=== PATIENT | male | born 1985 | race Caucasian/White ===

== ENCOUNTER 2016-08-26 06:35 | Day surgery (SDC) | payer OTHER ==
[~2016-08-26 06:35] MED LIST: RINGERS SOLUTION,LACTATED 1,000 ML IV PRN; ceFAZolin SODIUM 1 GM VIAL IV PRN
[2016-08-26] MEDS ORDERED: BUPIVACAINE HCL 50 ML VIAL IJ ONE ×2 (08:00)
--- NOTE | 2016-08-26 08:31 | OR ---
Operative Report - Dictated Report Narrative: Date: 08/26/2016 Physician: Akash Hernandez M.D. Floorleader: Wei Valdez PA-C Preoperative diagnosis: Right long and ring Trigger finger Postoperative diagnosis: Right long and ring Trigger finger Procedure: Right long and ring finger A1 orlando release Anesthesia: MAC Plus local Complications: None Estimated blood loss: Minimal Tourniquet time: 11 minutes at 325 mmHg Specimens: None Retained implants: None Drains: None Indications: Lalo Is a 30 year-old male who has been followed in my clinic with complaints of trigger finger. Physical exam as demonstrated triggering of the finger. Conservative measures have failed including but not limited to passage of time, activity modification, medications, and injections. The risks, benefits, and alternatives were discussed in clinic. The risks being bleeding, infection, nerve, tendon, blood vessel injury, persistent pain, wound competitions, need for additional procedures, and persistent symptoms. Consent was obtained in the clinic. Procedure: After marking the correct extremity in the preoperative holding area, a timeout was performed in the operating room. IV antibiotics consisting of 2 g of Ancef were administered prior to the procedure. A well-padded, nonsterile tourniquet was applied to the operative upper arm. The arm was exsanguinated and the tourniquet was inflated to 250 mmHg. 0.5% Marcaine without epinephrine was infused into the projected incision site at the palmar flexion crease over the metacarpal phalangeal joint in line with the affected digits. Using loupe magnification, a transverse incision was made in the appropriate palmar flexion crease in line with the long finger. Blunt dissection was carried down through the subcutaneous tissues using bipolar cautery for hemostasis. Care was taken to protect the digital nerves. Staying midline along the flexor tendon, the A1 orlando was identified. A warren was made in the proximal edge of the A1 orlando with a 15 blade scalpel and tenotomy scissors were utilized in order to completely transect the A1 orlando. Care was to stay midline and avoid transection of the A2 orlando. Soft tissues overlying the flexor tendon proximal to the A1 orlando were also released ensuring that there were no other compressive structures contributing to the triggering. The finger was placed through range of motion and demonstrated no additional catching. The tendons were visualized and mobilized out of the wound, and demonstrated some mild adhesions which were debrided with tenotomy scissors. The tendons were noted to be intact. We then turned our attention to the ring finger. A second transverse incision was made in the appropriate palmar flexion crease in line with the ring finger. Blunt dissection was carried down through the subcutaneous tissues using bipolar cautery for hemostasis. Care was taken to protect the digital nerves. Staying midline along the flexor tendon, the A1 orlando was identified. A warren was made in the proximal edge of the A1 orlando with a 15 blade scalpel and tenotomy scissors were utilized in order to completely transect the A1 orlando. Care was to stay midline and avoid transection of the A2 orlando. Soft tissues overlying the flexor tendon proximal to the A1 orlando were also released ensuring that there were no other compressive structures contributing to the triggering. The finger was placed through range of motion and demonstrated no additional catching. The tendons were visualized and mobilized out of the wound, and demonstrated some mild adhesions which were debrided with tenotomy scissors. The tendons were noted to be intact. Once it was felt that we had adequately decompressed the flexor tendons as they passed under the A1 orlando, the tourniquet was removed. Hemostasis was obtained with pressure and bipolar cautery. There was good return of color and capillary refill to the digit. Additional half percent Marcaine without epinephrine was infused into the skin edges. The wounds were thoroughly irrigated. The skin was closed with interrupted 4-0 nylon. Sterile dressings consisting of Xeroform, 4 x 4, and Lelo were applied. All sponge, needle, blade, and instrument counts were correct prior to closing the wounds. The patient was awoken and transferred to the post-anesthesia care unit in stable condition.
[2016-08-26] MEDS ORDERED: oxyCODONE HCL/ACETAMINOPHEN 1 TAB TABLET PO PRN (08:48)
[2016-08-26] MEDS ORDERED: HYDROmorphone HCL 2 MG/ML VIAL IV PRN (08:49)
[2016-08-26] MEDS ORDERED: RINGERS SOLUTION,LACTATED 1,000 ML IV PRN (08:49)
[2016-08-26 09:42] VITALS: BP 118/59
== END 2016-08-26 06:36 | disposition home or self-care (01) ==
LOC: AMB 06:35
PROVIDERS: ATTEND Orthopaedic Surgery
PROC: 0LN70ZZ Release Right Hand Tendon, Open Approach (ICD-10-PCS; 2016-08-26)
PROC: 0LN70ZZ Release Right Hand Tendon, Open Approach (ICD-10-PCS; principal; 2016-08-26 08:00)
DX: M65.331 Trigger finger, right middle finger (principal); M65.341 Trigger finger, right ring finger; Z68.26 Body mass index [BMI] 26.0-26.9, adult

== ENCOUNTER 2016-09-05 21:44 | Inpatient (IN) | payer OTHER ==
--- NOTE | 2016-09-05 21:46 | HP ---
Chief Complaint - Chief Complaint Date of Service: 09/05/16 Time of Service: 21:45 Chief Complaint: Right ring finger pain and swelling History of Present Illness: Lalo is a 30 yo M who is 10 days out from a right long and ring finger trigger finger release. He was initially seen in clinic 4 days postop where his wounds were inspected and he was found to have no drainage or or erythema and no swelling of either digit. He was doing well until Tuesday night when he noted some increasing pain and swelling of his ring finger. He monitor this over the weekend and by this afternoon it had become much worse. He called the call center and got a hold of me and I spoke to the patient directly over the phone. He sent me a picture of his finger and I was immediately concerned based on his history and the picture that was sent for purulent flexor tenosynovitis. I counseled him to come to the [facility] emergency Department as soon as possible and I would meet him there. He stated to me that he could only get a ride to [facility] which is closer to where he lived. I tried to convince the patient otherwise and explained to him the need for me to see his finger as I was his primary surgeon however despite this he presented to [facility] emergency Department. I continued to try and get a hold of the patient's and was able to get ahold of him again after he had been seen in the outside emergency department. He stated that they did not do any lab work and gave him some Vicodin and Keflex with instructions to follow back up with me on Tuesday. Once again I explained to him the seriousness of the situation and that I was concerned that he had a serious infection of his finger. I am poor him to find a way to get to the emergency department for [facility] so that I can evaluate him. He was able to find a ride and did indeed present to our emergency department with complaint of severe pain and swelling of his ring finger. He currently denies any fevers or chills. His any pain extending into the proximal aspect of the palm or wrist or up into the forearm. - Patient's Past Medical History Patient History - Medical: Migraines, Other Patient History - Cardiac/Respiratory: Asthma, Other Patient History - Cancer: No Hx of Cancer Patient History - Surgical Procedures: No surgical history Patient History - Other: None - Family History Father Family History - Medical: Diabetes Type 2 Family History - Cardiac/Respiratory: Hypertension Family History - Cancer: No pertinent family hx Mother Family History - Medical: Other Family History - Cardiac/Respiratory: No pertinent hx Family History - Cancer: No pertinent family hx - Social History Living Situations: other Abuse History: No History of abuse Psych History: No pertinent hx Alcohol Use: occasionally Drug Use: other Allergies/Adverse Reactions: Allergies Allergy/AdvReac Type Severity Reaction Status Date / Time venom-honey bee Allergy Severe Anaphylaxis Verified 08/26/16 06:53 [bee venom (honey bee)] Penicillins Allergy Unknown MOTHER Verified 08/26/16 06:53 TOLD HIM HE WAS ALLERGIC Home Medications: HOME MEDICATIONS Ibuprofen [Motrin] 800 mg PO QAM 08/19/16 [Last Taken Unknown] HYDROcodone/ACETAMINOPHEN [[place] 5-325] 1 - 2 tab PO Q6H PRN #30 tab 08/26/16 [ Last Taken Unknown] Exam - Exam Vital Signs: Vital Signs - Last Taken Temp 36.5 C 08/26/16 09:53 Pulse Resp BP 118/59 08/26/16 09:53 Pulse Ox Comprehensive Narrative: 09/05/16 21:55 Gen: A&O x4, NAD Resp: breathing nonlabored MSK: ring finger diffusely swollen and held in a flexed position, severe tenderness along flexor tendon sheath, exquisite pain with passive extension of finger, sensation intact but diminished, patient unable to actively flex or extend ring finger, cap refill brisk, incision without active drainage or erythema but with deep swelling and what appears to be underlying purulence Assessment/Plan - Narrative Narrative: 30 yo M 10 days s/p R long and ring finger trigger release now with purulent flexor tenosynovitis of the ring finger. - The patient's physical exam is classic for purulent flexor tenosynovitis as he is has all 4 positive Knavel's signs. I counseled him on the seriousness of this infection and explained to him that we need to emergently irrigate and debride his flexor tendon sheath. The risks and benefits of surgery were explained to him in detail including but not limited to neurovascular injury, persistent stiffness, wound complications, need for additional procedures, cardiorespiratory complications, and . After discussion of these risks and benefits the patient wished to proceed with surgery and it was declared emergent. - plan for I&D of the R ring finger - will obtain intraoperative cultures, hold abx until cultures obtained - admit to inpatient postoperatively for IV abx
[2016-09-05] MEDS ORDERED: RINGERS SOLUTION,LACTATED 1,000 ML IV PRN ×2 (21:49→23:15)
[2016-09-05 22:00] LABS: Hematocrit 37.1 % (42.0-52.0); Hemoglobin 13.3 gm/dL (13.5-18.0); Mean Cell Volume 93.9 fl (78-100); Mean Corpuscular Hemoglobin 33.7 pg (27-31); Mean Corpuscular Hgb Conc 35.8 g/dl (32-36); Mean Platelet Volume 8.8 fl (6.0-9.5); Neutrophil # 4.1 K/mm3 (1.3-6.0); Platelet Count 223 K/mm3 (150-450); Red Blood Count 3.95 M/mm3 (4.7-6.0); Red Cell Distribution Width 11.4 % (11.5-14.0)
[2016-09-05] MEDS ORDERED: RINGERS SOLUTION,LACTATED 1,000 ML IV ONE (22:05)
[2016-09-05] MEDS ORDERED: PROMETHAZINE HCL 5 MG in DEXTROSE 5 % IN WATER 50 ML IV PRN ×2 (23:15)
[2016-09-05] MEDS ORDERED: MAGNESIUM HYDROXIDE 30 ML UDC PO PRN (23:15)
[2016-09-05] MEDS ORDERED: ONDANSETRON HCL/PF 2 MG/ML VIAL IV PRN (23:15)
[2016-09-05] MEDS ORDERED: ACETAMINOPHEN 500 MG TABLET PO PRN (23:15)
[2016-09-05] MEDS ORDERED: MAG HYDROX/ALUMINUM HYD/SIMETH 30 ML UDC PO PRN (23:15)
[2016-09-05] MEDS ORDERED: oxyCODONE HCL/ACETAMINOPHEN 1 TAB TABLET PO PRN (23:15)
[2016-09-05] MEDS ORDERED: METOCLOPRAMIDE HCL 5 MG/ML VIAL IV PRN (23:28)
[2016-09-05] MEDS ORDERED: NALOXONE HCL 0.4 MG/ML VIAL IV PRN (23:28)
[2016-09-05] MEDS ORDERED: HYDROmorphone HCL 1 MG/ML DISP.SYRIN IV ONE ×2 (23:29→23:30)
--- NOTE | 2016-09-05 23:31 | OR ---
Operative Report - Dictated Report Narrative: Date: 09/05/2016 Physician: Akash Hernandez M.D. Co-surgeon: Tramaine Rivas M.D. Preoperative diagnosis: Purulent flexor tenosynovitis of right ring finger Postoperative diagnosis: Purulent flexor tenosynovitis of right ring finger Procedure: Irrigation and debridement of right ring finger Anesthesia: General Complications: None Estimated blood loss: Minimal Tourniquet time: 36 Minutes with forearm esmarch band Specimens: None Retained implants: None Drains: None Indications: Lalo Is a 30 year-old male who is 10 days status post right long and ring trigger finger release. He was initially doing well and was seen in follow-up 4 days postop for a work comp follow-up and at that time his wounds showed no signs of infection, however starting on Tuesday and through the weekend he developed progressive pain and swelling of the right ring finger. He was evaluated in the [facility] emergency department with a history and exam concerning for purulent flexor tenosynovitis. He was counseled on the serious nature of this infection and we explained the need for emergent irrigation and debridement of the finger. The risks and benefits were discussed including, but not limited to, bleeding, infection, nerve, tendon, blood vessel injury, persistent pain, wound competitions, need for additional procedures, stiffness, and persistent pain. Consent was obtained in the ED. Procedure: After marking the correct extremity in the preoperative holding area, a timeout was performed in the operating room. IV antibiotics were held prior to the procedure in order to obtain intraoperative cultures. A non-sterile tourniquet was placed around the operative upper arm. The operative extremity was then prepped and draped in usual sterile fashion. The arm was exsanguinated and the tourniquet was inflated to 250 mmHg. We turned our attention to the ring finger incision. The nylon sutures were removed and immediately we encountered some watery purulence. Intraoperative swab cultures were obtained. The incision and wound were irrigated and then more thoroughly explored. There was a large amount of rind-like tenosynovium covering the flexor tendons which was debrided with pickups and tenotomy scissors. Once all infectious and nonviable looking tissue was debrided from the palmar wound we turned our attention to the distal aspect of the finger. A mid axial incision was made along the ulnar border of the ring finger distal phalanx. Blunt dissection with tenotomy scissors was carried down to the level of the flexor tendon sheath which was opened with a sharp knife. We turned our attention back to the proximal wound and a 20-gauge angiocatheter was inserted into the flexor tendon sheath we then copiously irrigated the flexor tendon sheath with half a liter normal saline with good flow through the sheath and out the distal wound. After irrigation the FDS and FDP were mobilized out of the proximal wound, inspected, and debrided of any infectious looking material. At this point we felt we had adequately debrided the flexor tendons and adequately irrigated the flexor tendon sheath. Drain was placed in the proximal incision and the skin was loosely closed around the Lolly with interrupted 4-0 nylon suture. The distal incision was closed loosely with a single interrupted 4-0 nylon stitch. Sterile dressings consisting of Xeroform, 4 x 4, soft roll, and WALE were applied. All sponge, needle, blade, and instrument counts were correct prior to closing the wounds. The patient was awoken and transferred to the post- anesthesia care unit in stable condition.
[2016-09-06] MEDS ORDERED: PIPERACILLIN SODIUM/TAZOBACTAM 3.375 GM in DEXTROSE 5 % IN WATER 100 ML IV SCH ×2
[2016-09-06] MEDS ORDERED: VANCOMYCIN HCL 1 GM in DEXTROSE 5 % IN WATER 250 ML IV SCH ×2
[2016-09-06] MEDS: MORPHINE SULFATE 2 MG/ML DISP.SYRIN IV PRN ×5 (00:10→13:20)
[2016-09-06] MEDS: oxyCODONE HCL/ACETAMINOPHEN 1 TAB TABLET PO PRN ×5 (00:26→20:33)
[2016-09-06 06:02] LABS: Hematocrit 34.7 % (42.0-52.0); Hemoglobin 12.1 gm/dL (13.5-18.0); Mean Cell Volume 95.6 fl (78-100); Mean Corpuscular Hemoglobin 33.3 pg (27-31); Mean Corpuscular Hgb Conc 34.9 g/dl (32-36); Mean Platelet Volume 9.2 fl (6.0-9.5); Neutrophil # 4.7 K/mm3 (1.3-6.0); Neutrophil % 68.9 % (42-75.0); Platelet Count 192 K/mm3 (150-450); Red Blood Count 3.63 M/mm3 (4.7-6.0); Red Cell Distribution Width 11.4 % (11.5-14.0); White Blood Count 6.8 K/mm3 (4.0-10.5)
[2016-09-06 06:16] LABS: Anion Gap 13.8 mmol/L (6.8-13.8); BUN/Creatinine Ratio 10.3 (9.0-21.6); Calcium * 8.1 mg/dL (7.9-10.9); Carbon Dioxide 25.1 mmol/L (24-32.6); Estimated Creat Clear 115.2; Potassium 3.9 mmol/L (3.4-4.6)
[2016-09-06] MEDS: PIPERACILLIN SODIUM/TAZOBACTAM 3.375 GM in DEXTROSE 5 % IN WATER 100 ML IV SCH ×4 (09:55→18:10)
--- NOTE | 2016-09-06 10:35 | PN ---
Subjective - Date and Time Seen Date: 09/06/16 Subjective Narrative: Pain improved this am from last night. Denies fevers/chills. No other complaints. Objective - Vitals Vitals: Last Vital Signs Temp 36.9 C 09/06/16 09:00 Pulse 83 09/06/16 09:00 Resp 15 09/06/16 09:00 BP 146/81 09/06/16 09:00 Pulse Ox 100 09/06/16 09:00 - Abnormal Lab Findings Abnormal Lab Findings: Abnormal Lab Results 09/05/16 09/05/16 09/05/16 Range/Units 21:55 21:55 21:55 RBC 3.95 L (4.7-6.0) M/mm3 Hgb 13.3 L (13.5-18.0) gm/dL Hct 37.1 L (42.0-52.0) % MCH 33.7 H (27-31) pg RDW 11.4 L (11.5-14.0) % Lymphocytes % 15.8 L (20-51) % Monocytes % 12.3 H (0.0-9) % Lymphocytes # 0.9 L (1.5-3.5) k/mm3 Monocytes # (0.0-1.0) k/mm3 ESR 14 H (0-10) mm/hr Random Glucose (70-110) mg/dL C-Reactive Prot, Quant 1.8 H (0.0-0.9) mg/dL 09/06/16 09/06/16 Range/Units 05:47 05:47 RBC 3.63 L (4.7-6.0) M/mm3 Hgb 12.1 L (13.5-18.0) gm/dL Hct 34.7 L (42.0-52.0) % MCH 33.3 H (27-31) pg RDW 11.4 L (11.5-14.0) % Lymphocytes % 12.6 L (20-51) % Monocytes % 16.6 H (0.0-9) % Lymphocytes # 0.9 L (1.5-3.5) k/mm3 Monocytes # 1.1 H (0.0-1.0) k/mm3 ESR (0-10) mm/hr Random Glucose 115 H (70-110) mg/dL C-Reactive Prot, Quant (0.0-0.9) mg/dL - Exam Exam Narrative: Gen: A&Ox4, NAD Resp: breathing non-labored on RA MSK: dressings c/d/i, cap refill of thumb and index finger brisk, SILT Assessment/Plan Plan Narrative: 30 yo M w/ purulent flexor tenosynovitis of R ring finger following trigger finger release now s/p I&D, POD #1. - NWB through R hand - continue Vanc/Zosyn - awaiting intraoperative culture results - plan for dressing change tomorrow - oral pain meds - dispo: continue inpatient care
[2016-09-06] MEDS: VANCOMYCIN HCL 2 GM in DEXTROSE 5 % IN WATER 500 ML IV SCH ×2 (13:53)
[2016-09-06] MEDS: SENNOSIDES/DOCUSATE SODIUM 1 TAB TABLET PO SCH (20:28)
[2016-09-06] MEDS: diphenhydrAMINE HCL 50 MG/ML VIAL IV PRN (22:58)
[2016-09-07] MEDS: VANCOMYCIN HCL 2 GM in DEXTROSE 5 % IN WATER 500 ML IV SCH ×4 (01:06→14:27)
[2016-09-07] MEDS: oxyCODONE HCL/ACETAMINOPHEN 1 TAB TABLET PO PRN ×4 (01:13→18:44)
[2016-09-07] MEDS: PIPERACILLIN SODIUM/TAZOBACTAM 3.375 GM in DEXTROSE 5 % IN WATER 100 ML IV SCH ×6 (04:58→19:05)
[2016-09-07 05:39] LABS: Hematocrit 34.8 % (42.0-52.0); Hemoglobin 12.1 gm/dL (13.5-18.0); Mean Cell Volume 95.9 fl (78-100); Mean Corpuscular Hemoglobin 33.3 pg (27-31); Mean Corpuscular Hgb Conc 34.8 g/dl (32-36); Mean Platelet Volume 9.3 fl (6.0-9.5); Neutrophil # 2.3 K/mm3 (1.3-6.0); Neutrophil % 51.1 % (42-75.0); Platelet Count 187 K/mm3 (150-450); Red Blood Count 3.63 M/mm3 (4.7-6.0); Red Cell Distribution Width 11.3 % (11.5-14.0); White Blood Count 4.4 K/mm3 (4.0-10.5)
[2016-09-07 05:52] LABS: Anion Gap 10.4 mmol/L (6.8-13.8); Calcium * 8.6 mg/dL (7.9-10.9); Carbon Dioxide 29.8 mmol/L (24-32.6); Estimated Creat Clear 123.3; Potassium 4.2 mmol/L (3.4-4.6)
--- NOTE | 2016-09-07 09:30 | PN ---
Subjective - Date and Time Seen Date: 09/07/16 Subjective Narrative: Pain improving. Denies fevers/chills. No other complaints. Objective - Vitals Vitals: Last Vital Signs Temp 36.6 C 09/07/16 07:22 Pulse 63 09/07/16 07:22 Resp 18 09/07/16 07:22 BP 131/88 09/07/16 07:22 Pulse Ox 99 09/07/16 07:22 - Abnormal Lab Findings Abnormal Lab Findings: Abnormal Lab Results 09/07/16 09/07/16 Range/Units 05:15 05:15 RBC 3.63 L (4.7-6.0) M/mm3 Hgb 12.1 L (13.5-18.0) gm/dL Hct 34.8 L (42.0-52.0) % MCH 33.3 H (27-31) pg RDW 11.3 L (11.5-14.0) % Immature Gran % (Auto) 0.50 H (0.001-0.429) % Monocytes % 18.3 H (0.0-9) % Eosinophils % 3.4 H (0.0-3.0) % Lymphocytes # 1.2 L (1.5-3.5) k/mm3 BUN/Creatinine Ratio 7.0 L (9.0-21.6) - Exam Exam Narrative: MSK: RUE--> dressings taken down, finger minimally swollen - much improved compared to pre-op, minimal erythema, mild pain with gentle flexion/extension, serosanguinous drainage from proximal wound, anusha drain removed, cap refill brisk, SILT Assessment/Plan Plan Narrative: 30 yo M w/ R ring finger purulent tenosynovitis after trigger finger release s/ p I&D, POD #2. - cultures growing staph and gram neg bacilli, awaiting speciation and sensitivities, continue Vanc/Zosyn - finger is clinically improving - oral pain meds - reg diet - dispo: continue inpatient care
[2016-09-07] MEDS: diphenhydrAMINE HCL 50 MG/ML VIAL IV PRN ×2 (11:00→19:06)
[2016-09-07] MEDS: SENNOSIDES/DOCUSATE SODIUM 1 TAB TABLET PO SCH (21:26)
[2016-09-08] MEDS: VANCOMYCIN HCL 2 GM in DEXTROSE 5 % IN WATER 500 ML IV SCH ×2 (01:09)
[2016-09-08] MEDS: oxyCODONE HCL/ACETAMINOPHEN 1 TAB TABLET PO PRN ×2 (01:17→08:04)
[2016-09-08] MEDS: PIPERACILLIN SODIUM/TAZOBACTAM 3.375 GM in DEXTROSE 5 % IN WATER 100 ML IV SCH ×4 (05:33→09:43)
[2016-09-08] MEDS: diphenhydrAMINE HCL 50 MG/ML VIAL IV PRN (05:34)
[2016-09-08 10:12] VITALS: BP 129/75
--- NOTE | 2016-09-08 10:31 | PN ---
Subjective - Date and Time Seen Date: 09/08/16 Subjective Narrative: No events overnight. Pain continuing to improve. No other complaints. Objective - Vitals Vitals: Last Vital Signs Temp 36.4 C L 09/08/16 10:05 Pulse 67 09/08/16 10:05 Resp 16 09/08/16 10:05 BP 129/75 09/08/16 10:05 Pulse Ox 99 09/08/16 10:05 - Exam Exam Narrative: MSK: RUE--> dressings c/d/i, minimal SS drainage from proximal incision, finger swelling continuing to improve, minimal pain with gentle ROM, cap refill brisk, SILT Assessment/Plan Plan Narrative: 30 yo M w/ purulent flexor tenosynovitis of R ring finger following trigger finger release s/p I&D, POD #3. - cultures growing MSSA and Serratia marcescens, will plan on transition to oral abx for 10 more days - oral pain meds - dispo: d/c today on oral abx with close clinical follow up for wound as an outpatient
--- NOTE | 2016-09-08 10:44 | DS ---
(1) Finger infection Diagnosis(s): Purulent flexor tenosynovitis of right ring finger, s/p right ring finger trigger release Problem: Acute Description of Stay: The patient was taken to the OR emergently on 09/05/16 for I&D of the R ring finger for a diagnosis of purulent flexor tenosynovitis. Intraoperative cultures were obtained and the patient tolerated the procedure well. He was admitted postoperatively and placed on broad spectrum IV abx. His finger was followed clinically and showed good signs of improvement. Cultures were followed and grew out MSSA and Serratia marcescens. He was deemed stable for discharge on POD 3 on oral antibiotics and close clinical follow up as an outpatient. Procedures Performed: see notes below List Procedures: I&D of right ring finger - 09/05/16 Discharge Disposition: Home self care Disposition: Home self-care Condition: Good Discharge Activity: Non-Weight bearing - through right hand Referrals: Robert Donohue MD [Primary Care Provider] - Additional Patient Instructions (free text): Orthopedic Discharge Instructions: 1. NWB through R hand. 2. Leave dressing in place and keep completely clean and dry until follow up in clinic. 3. Bactrim DS BID prescribed for 14 days. 4. F/u in Ortho clinic on 09/10/16 for wound check. Prescriptions (Any new or edited meds): Sulfamethoxazole/Trimethoprim [Bactrim Ds] 1 tab PO BID #28 tab oxyCODONE HCL/ACETAMINOPHEN [Percocet 5 MG/325 MG] 1 - 2 tab PO Q4H PRN #60 tablet PRN Reason: Moderate Pain Complete Home Medications List: Complete Home Medication List: Ibuprofen [Motrin] 800 mg PO QAM 08/19/16 Sulfamethoxazole/Trimethoprim [Bactrim Ds] 1 tab PO BID #28 tab 09/08/16 oxyCODONE HCL/ACETAMINOPHEN [Percocet 5 MG/325 MG] 1 - 2 tab PO Q4H PRN #60 tablet 09/08/16
== END 2016-09-08 12:30 | disposition home or self-care (01) | DRG 514 ==
LOC: MS 21:44 → OBSVTOIN 23:15 → MS 23:15
PROVIDERS: ADMIT Orthopaedic Surgery; ATTEND Orthopaedic Surgery
PROC: 0JBJ0ZZ Excision of Right Hand Subcutaneous Tissue and Fascia, Open Approach (ICD-10-PCS; 2016-09-05)
PROC: 0LB70ZZ Excision of Right Hand Tendon, Open Approach (ICD-10-PCS; principal; 2016-09-05 21:55)
DX: M65.841 Other synovitis and tenosynovitis, right hand (principal)
CPT/HCPCS: 11011; 11012; 11042; 36415; 80048; 85025; 85652; 86140; 87070; 87077; 87186; G0379